=== PATIENT | female | born 1960 | race Caucasian/White ===

== ENCOUNTER 2021-11-27 07:50 | Outpatient (RCR) | payer OTHER, SELFPAY ==
[2021-11-06 13:48] LABS: Basophils Percent Auto 0.4 % (0.0-3.0); Eosinophils Percent Auto 0.4 % (0.0-7.0); Hematocrit 34.9 % (33.0-51.0); Hemoglobin* 11.8 gm/dL (12.0-16.0); Mean Corpuscular HGB Conc 34 gm/dL (32-36); Mean Corpuscular Hemoglobin 31 pg (26-34); Mean Corpuscular Volume 92 fL (80-100); Monocytes Percent Auto 10.5 % (0.0-11.0); Neutrophils Percent Auto 62.7 % (42.0-72.0); Platelet Count* 121 K/uL (140-440); Red Blood Count 3.78 m/uL (4.00-5.20)
[2021-11-06 14:02] LABS: Slide Review Reflex No
[2021-11-06 14:40] LABS: White Blood Count* 5.03 K/uL (4.50-11.00)
[2021-11-06 14:57] LABS: Lymphocytes Absolute Auto 1.31 K/uL (0.90-2.90); Neutrophils Absolute Auto 3.15 K/uL (1.7-7.0)
[2021-11-06 14:58] LABS: Basophils Absolute Auto 0.02 K/uL (0.00-0.30); Eosinophils Absolute Auto 0.02 K/uL (0.00-0.50)
[2021-11-06 15:11] LABS: Vitamin B12* > 1000 pg/mL (243-894)
== END 2022-05-05 23:59 | disposition home or self-care (01) ==
LOC: CCIC 07:50
PROVIDERS: Clinical Nurse Specialist; PCP Physician Assistant Medical; Visit Provider Nurse Practitioner Family
DX: D89.2 Hypergammaglobulinemia, unspecified (principal)
CPT/HCPCS: 36415; 82607; 85025

== ENCOUNTER 2022-01-29 09:17 | Outpatient (CLI) | payer OTHER, SELFPAY ==
[2022-01-29 14:25] LABS: Albumin* 4.4 g/dL (3.3-5.0); Chloride* 103 mmol/L (96-114)
[2022-01-29 14:26] LABS: Potassium* 4.8 mmol/L (3.6-5.1); Sodium* 139 mmol/L (135-149)
[2022-01-29 14:28] LABS: Aspartate Amino Transferase* 35 U/L (12-35); Blood Urea Nitrogen* 17 mg/dL (7-30); Carbon Dioxide* 30 mmol/L (20-32); Cholesterol* 195 mg/dL (90-199); Creatinine* 0.8 mg/dL (0.5-1.5); Estimated Glomerular Filt Rate 84 ml/min; Total Protein* 8.3 g/dL (6.0-8.3)
[2022-01-29 14:29] LABS: Alanine Aminotransferase* 23 U/L (4-35); Alkaline Phosphatase* 93 U/L (40-150); Calcium* 9.4 mg/dL (8.4-10.6); Glucose* 80 mg/dL (60-115); HDL Cholesterol* 56 mg/dL (>=50); LDL Cholesterol Calculated 125 mg/dL (<100); Triglycerides* 70 mg/dL (40-149)
== END 2022-01-29 09:18 | disposition home or self-care (01) ==
PROVIDERS: PCP Physician Assistant Medical; Visit Provider Physician Assistant Medical
DX: Z00.00 Encounter for general adult medical examination without abnormal findings (principal); E03.9 Hypothyroidism, unspecified; Z13.6 Encounter for screening for cardiovascular disorders
CPT/HCPCS: 80053; 80061; 84443

== ENCOUNTER 2022-04-24 15:05 | Outpatient (CLI) | payer OTHER, SELFPAY ==
--- NOTE | 2022-04-24 15:20 | CRLHL7_ITS ---
For Patients: As a result of the Century Cures Act, medical imaging exams and procedure reports are released immediately into your electronic medical record. You may view this report before your referring provider. If you have questions, please contact your health care provider. BILATERAL SCREENING MAMMOGRAM WITH COMPUTER-AIDED DETECTION AND TOMOSYNTHESIS TECHNIQUE: CC and MLO views were obtained. These mammographic images have been obtained using full-field digital technique. These mammographic images were interpreted with the benefit of computer-aided detection. Breast Tomosynthesis was used in this interpretation. COMPARISON FILM: 04/24/21, 04/04/19, 08/03/17. FINDINGS: The breasts are heterogeneously dense, which may obscure small masses IMPRESSION: There is no radiographic evidence for malignancy. ASSESSMENT: BI-RADS Category 1: Negative RECOMMENDATION: Routine screening mammogram in 1 year. A lay language report of this examination will be provided to the patient. Rogerio Plata M.D. Diagnostic Radiologist [email or web address] SEVERINO/Dictated by: Rogerio Plata MD @ 04/27/2022 8:54:00 AM (Electronically Signed)
== END 2022-04-24 15:06 | disposition home or self-care (01) ==
LOC: MAMMO 15:07
PROVIDERS: PCP Physician Assistant Medical; Visit Provider Physician Assistant Medical
DX: Z12.31 Encounter for screening mammogram for malignant neoplasm of breast (principal); R92.2 Inconclusive mammogram
CPT/HCPCS: 77063; 77067

== ENCOUNTER 2023-01-06 11:08 | Outpatient (CLI) | payer OTHER, SELFPAY | END 2023-01-06 11:09 | disposition home or self-care (01) | PROVIDERS: PCP Physician Assistant Medical; Visit Provider Physician Assistant Medical | DX: Z00.00 Encounter for general adult medical examination without abnormal findings (principal); E03.9 Hypothyroidism, unspecified; E53.8 Deficiency of other specified B group vitamins; D64.9 Anemia, unspecified; Z13.1 Encounter for screening for diabetes mellitus; Z13.6 Encounter for screening for cardiovascular disorders; Z13.0 Encounter for screening for diseases of the blood and blood-forming organs and certain disorders involving the immune mechanism; Z11.59 Encounter for screening for other viral diseases | CPT/HCPCS: 80053; 80061; 82607; 83540; 83550; 84443; 86703; 86803 ==

== ENCOUNTER 2023-02-02 09:32 | Outpatient (CLI) | payer OTHER, SELFPAY | END 2023-02-02 09:33 | disposition home or self-care (01) | LOC: NFLDREF 02-04 14:53 | PROVIDERS: PCP Physician Assistant Medical; Referring Provider Physician Assistant Medical; Visit Provider Physician Assistant Medical | DX: D64.9 Anemia, unspecified (principal); R77.9 Abnormality of plasma protein, unspecified; D89.2 Hypergammaglobulinemia, unspecified; R74.01 Elevation of levels of liver transaminase levels | CPT/HCPCS: 80053; 82746; 83615; 84165 ==

== ENCOUNTER 2023-03-09 14:02 | Outpatient (RCR) | payer OTHER, SELFPAY | END 2023-09-05 23:59 | disposition home or self-care (01) | LOC: CCIC 14:02 | PROVIDERS: Clinical Nurse Specialist; PCP Physician Assistant Medical; Visit Provider Internal Medicine Hematology & Oncology | DX: D80.2 Selective deficiency of immunoglobulin A [IgA] (principal); D89.2 Hypergammaglobulinemia, unspecified | CPT/HCPCS: 36415; 86334 ==

== ENCOUNTER 2023-05-27 14:14 | Outpatient (CLI) | payer OTHER, SELFPAY ==
--- NOTE | 2023-05-27 14:40 | MM_ITS ---
Patient: HILDA CONTRERAS Facility:?[facility] Patient ID:?[id number] Site Patient ID:?[id number]. Site :?1960 Study:?XRay-Breast Bilateral 3D W/CAD-05/27/2023 4:01:06 PM Ordering Physician:Annabelle Final Report: BILATERAL SCREENING MAMMOGRAM WITH COMPUTER-AIDED DETECTION AND TOMOSYNTHESIS TECHNIQUE: CC and MLO views were obtained. These mammographic images have been obtained using full-field digital technique. These mammographic images were interpreted with the benefit of computer-aided detection. Breast Tomosynthesis was used in this interpretation. COMPARISON FILM: 04/24/22, 04/24/21, 04/04/19. FINDINGS: The breasts are heterogeneously dense, which may obscure small masses. IMPRESSION: There is no radiographic evidence for malignancy. ASSESSMENT: BI-RADS Category 1: Negative RECOMMENDATION: Routine screening mammogram in 1 year. A lay language report of this examination will be provided to the patient. Rogerio Plata M.D. Diagnostic Radiologist [email or web address] DSM/sp R& Transcribed: 5:41 p.m. SP/Dictated by: Rogerio Plata MD @ 05/28/2023 9:58:00 AM Signed by:Caleb Plata MD @05/28/2023 6:02:56 PM (Electronic Signature)
== END 2023-05-27 14:15 | disposition home or self-care (01) ==
PROVIDERS: PCP Physician Assistant Medical; Visit Provider Physician Assistant Medical
DX: Z12.31 Encounter for screening mammogram for malignant neoplasm of breast (principal); R92.2 Inconclusive mammogram
CPT/HCPCS: 77063; 77067

== ENCOUNTER 2024-01-25 08:02 | Outpatient (CLI) | payer OTHER, SELFPAY ==
--- OUTSIDE RECORDS SUMMARY | 2024-01-29 17:30 | XMS_ITS | Clinical Summary ---
Author Organization [facility] Address [place], [place] [address] Care Team Providers Care Ear Mold Laboratory Technician Name Role Phone Fiona Jaquez MD Unavailable [phone] Rebeka Braden PA-C Primary Care Provider [phone] Allergies Active Allergy Reactions Criticality Noted Date Comments Azithromycin Anaphylaxis High 03/27/2008 Zythromax 02-03-2008 17:07:03 - verified Zythromax Levofloxacin Palpitations 05/06/2015 All groups of fluroquinolones Sulfa (Sulfonamide Antibiotics) Hives 03/07/2010 Sulfadiazine Hives 03/27/2008 02-03-2008 17:06:53 - verified Sulfasalazine Hives 04/30/2017 Medications Medication Sig Dispensed Refills Start Date End Date Status levothyroxine (SYNTHROID) 50 mcg tablet Take 1 tablet by mouth before breakfast. 0 11/18/2017 Active cholecalciferol (VITAMIN D3) 1,000 unit tablet Take by mouth. 01/18/2009 Act tri omeprazole 20 mg TbLD Take by mouth. 0 07/14/2022 Active acyclovir (ZOVIRAX) 200 mg capsule Take 1 Capsule (200 mg) by mouth 5 times daily. 50 Capsule 07/14/2022 Active medication order composer Probitoic Duo (Jarrow) 2 gummies daily 0 07/14/2022 Active medication order composer Vitamin B12 (Natrol) 2500 mcg 2 times weekly 0 07/14/2022 Active medication order composer Aloe Vera Juice 1oz/daily 0 07/14/2022 Active medication order composer Smarty Pants Womens Multi Vitamin PRN 0 07/14/2022 Active medication order composer Zince with/ Elderberry 5mg PRN 0 07/14/2022 Active metoprolol succinate (TOPROL XL) 50 mg sustained-release tablet 06/03/2022 Active medication order composer Iron 0 07/28/2022 Active medication order composer Glutathione 0 08/21/2022 Active medication order composer D3 w/K2 0 08/21/2022 Active medication order composer Binder Blend 0 10/09/2022 Active medication order composer NAC 0 10/09/2022 Active medication order composer Saccharomyces Boulardii 0 10/09/2022 Active medication order composer Pectasol C 0 10/09/2022 Active medication order composer X Clear Nasal Hydetown 0 10/09/2022 Activ e Active Problems Problem Noted Date Diagnosed Date 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 Normal ventricular function. No syncope. Paroxysmal Ventricular Tachycardia: Non sustained. Normal ventricular function. No syncope. 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 Polyarthralgia 03/27/2008 Encounters Date Type Department Care Team Description 01/28/2024 Lab Requisition [facility] [phone] Rebeka Braden PA-C 01/11/2024 8:25 AM CDT - 01/11/2024 11:59 PM CDT Hospital Encounter [address] [address] Eleanor Contreras MD Anderson, Alison Contreras, PT 01/11/2024 Travel 01/04/2024 9:15 AM CDT - 01/04/2024 11:59 PM CDT Hospital Encounter [address] [address] Eleanor Contreras MD Anderson, Alison Contreras, PT 01/04/2024 Travel 12/28/2023 7:45 AM CDT - 12/28/2023 11:59 PM CDT Hospital Encounter [address] [address] Eleanor Contreras MD Anderson, Alison Contreras, PT 12/28/2023 Travel 12/14/2023 7:45 AM CDT - 12/14/2023 11:59 PM CDT Hospital Encounter [address] [address] Elaenor Contreras MD Anderson, Kaitlyn A, PT 12/14/2023 Travel 11/30/2023 7:45 AM CDT - 11/30/2023 11:59 PM CDT Hospital Encounter [address] [address] Eleanor Contreras MD Anderson, Kaitlyn A, PT 11/30/2023 Travel 11/25/2023 7:45 AM CDT - 11/25/2023 11:59 PM CDT Hospital Encounter [address] [address] Eleanor Contreras MD Anderson, Kaitlyn A, PT 11/25/2023 Travel 11/08/2023 9:16 AM CDT - 11/08/2023 11:59 PM CDT Hospital Encounter [facility] [address] [place] [address] Eleanor Contreras MD Anderson, Kaitlyn A, PT Encounter for person encountering health services 11/08/2023 Travel from Last 3 Months Immunizations Name Administration Dates Next Due Hepatitis B, Unspecified 08/09/1998,03/11/1998,1 04/13/1997 Influenza A (H1N1), Inactivated 02/14/2011,03/01 Influenza Virus, Unspecified 01/31/2011 Influenza, IIV3 (Age >=3 years) 01/06/2014 Influenza, IIV4 01/06/2023,,12/28/2020,12/17 Influenza, IIV4 (=>6mos) MDV 12/12/2016 Pneumococcal Poly,23-Valent (Pneumovax) 02/06/2011 Pneumococcal conj 13-Valent (Prevnar 13) 12/13/2005 RSV, Bivalent Vaccine Recons tituted (Abrysvo 120MCG/0.5mL) 01/06/2023 Tdap 02/09/2011 Tetanus Toxoid 10/13/2006 Zoster (Shingrix-RZV, recombinant) 04/01/2020, Family History Medical History Relation Name Comments Diabetes Brother 1 Diabetes Brother 2 Irritable bowel syndrome Brother 3 Thyroid Disease Brother [address] Brain tumor Cancer Brother 5 kidney transpla nt - antirejection Other Brother 6 ankelosis spont ilitis Hyperlipidemia Father Hypertension Father Irritable bowel syndrome Father Other Father celic/pernish e nemia Thyroid Disease Father Alcoholism Maternal Grandmother Psychiatric illness Maternal Grandmother Schizophrenia Other Mother dementia Diabetes Other 1 neice Other Other 2 Multiple family member has GI issures Heart Disease Paternal Grandmother Heart Disease Paternal Uncle Hypertension Sister Irritable bowel syndrome Sister Relation Name Status Comments Brother 1 Brother 2 Brother [address] Brother 5 Brother 6 Father Maternal Grandmother Mother Other 1 Other 2 Paternal Grandmother Paternal Uncle Sister Social History Tobacco Use Types Packs/Day Years Used Date Smoking Tobacco: Never Passive Smoke Exposure: Past Smokeless Tobacco: Never Tobacco Cessation:Counseling Given: Not Answered Comments:quit since high school Alcohol Use Standard Drinks/Week Comments Yes 2 (1 standard drink = 0.6 oz pur e alcohol) wine - Wednesday or Wednesday PHQ-2 Answer Date Recorded PHQ-2 TOTAL SCORE 0 07/14/2022 Social Connections Answer Date Recorded Frequency of Communication with Friends and Fami ly Not on file 07/16/2023 Alcohol Use Answer Date Recorded How often do you have a drink containing alcohol ? 3 10/09/2022 How many drinks containing a lcohol do you have on a typical day when you are drinking? 0 10/09/2022 How often do you have five or more drinks on one occasion? 0 10/09/2022 Financial Resource Strain Answer Date R ecorded Difficulty of Paying Living Expenses 3 07/14/2022 Difficulty of Paying Living Expenses Not on file 07/14/2022 Food Insecurity Answer Date Recorded Worried About Running Out of Food in the Last Ye ar 1 07/14/2022 Transportation Needs Answer Date Record ed Lack of Transportation (Medical) 1 07/14/2022 Housing Stability Answer Date Recorded Unable to Pay for Housing in the Last Year 1 07/14/2022 Sex and Gender Information Value Date Recorded Sex Assigned at Not on file Gender Identity Not on file Sexual Orientation Not on file Obstetrics History Para Term AB IAB SAB Ectopic Multiple Livin g Live Births 2 2 2 0 0 0 0 0 0 2 2 Date Outcome GA Total Labor Labor/2nd/3rd Weight Sex Type Anes PTL Hui A1 A5 Name Clin 1981 Term 40w 0d F Vag Living 1983 Term 40w 0d F Vag Living Last Filed Vital Signs Vital Sign Reading Time Taken Comments Blood Pressure 104/68 06/07/2023 3:02 PM CDT Pulse 68 06/07/2023 3:02 PM CDT Temperature 37 ??C (98.6 ??F) 11/24/2022 1:05 PM CDT Respiratory Rate 18 11/24/2022 1:05 PM CDT Oxygen Saturation 100% 06/07/2023 3:02 PM CDT Inhaled Oxygen Concentration - - Weight 59 kg (130 lb) 06/07/2023 3:02 PM CDT Height 166.4 cm (5' 5.5) 07/28/2022 2:56 PM CDT Body Mass Index 21.3 07/28/2022 2:56 PM CDT Plan of Treatment Health Maintenance Due Date Last Done Comments HIV for age 15-65 12/26/1975 Hepatitis C screening for ag e 18-79 1978 Colonoscopy through age 75 2005 Lipids for age 45-75 2005 Mammogram for age 45-75 2005 Pneumococcal series for age 6-64 (3 of 3 - PPSV23 or PCV20) 02/07/2016 02/06/2011, 12/13/2005 BMI (ht and wt on same day) for age 18+ 02/03/2020 02/02/2019 Tetanus booster 02/09/2021 02/09/2011 Depression screening for age 12+ 07/15/2023 07/15/19, 02/02/2019 Influenza for age 50-64 11/14/2023 01/07/20, 01/04/2022, 12/28/2020, Additional history exists COVID-19 vaccine series (2023- season) 2024 01/01/2024, 02/23/2023, 01/08/2022, Additional history exists Pap test for age 21-65 01/29/2025 , 01/29/2022, 07/26/2017, Additional history exists Tdap Completed 02/09/2011 Zoster (shingles) series for age 50+ Completed 04/01/2020, 01/15/2020 Procedures Procedure Name Priority Date/Time Associated Diagnosis Comments RETICULOCYTES Routine 01/27/2024 12:50 PM THINNER SPRAYER HPV HIGH RISK Routine 01/29/2022 9:15 AM THINNER SPRAYER from Last 3 Months or Most Recently Relevant to Health Maintenance Results * RETICULOCYTES (01/27/2024 12:50 PM THINNER SPRAYER) RETIC% 1.3 0.5 - 1.5 % 01/28/2024 1:53 PM THINNER SPRAYER [facility] [employer] [facility] [facility] RETIC (ABSOLUTE) 0.05 0.03 - 0.08 mil/cu mm 01/28/2024 1:53 PM THINNER SPRAYER [facility] [employer] [facility] Blood BLOOD SPECIMEN / Unknown Client Collect / Unknown 01/27/2024 12:50 PM THINNER SPRAYER 01/28/2024 1:35 PM THINNER SPRAYER Rebeka Braden PA-C HEMATOLOGY [facility] [address] [place] [address], * HPV HIGH RISK (01/29/2022 9:15 AM THINNER SPRAYER) TYPE 16 Negative Negative 02/06/2022 11:17 AM THINNER SPRAYER [facility] TYPE 18 Negative Negative 02/06/2022 11:17 AM THINNER SPRAYER [facility] OTHER HIGH RISK TYPES Negative Negative 02/06/2022 11:17 AM THINNER SPRAYER [facility] Other (Cervical) 01/29/2022 9:15 AM THINNER SPRAYER 01/30/2022 10:01 AM THINNER SPRAYER Narrative [facility] - 02/06/2022 11:17 AM THINNER SPRAYER HPV types 16, 18, 31, 33, 35, 39, 45, 51, 52, 56, 58, 59, 66 and 68 DNA were undetectable or below the pre-set threshold. Methodology: Tonia Lizzie 4800 HPV Test Lamonte Norwood PA-C MICROBIOLOGY Performing Organization Address City/[facility]/ZIP Co de Phone Number [facility] [address] [place] [address], from Last 3 Months or Most Recently Relevant to Health Maintenance Care Teams Ear Mold Laboratory Technician Relationship Specialty Start Date End Date Rebeka Braden PA-C [address] [place] [address] PCP - General Emergency Medicine 01/19/23 Fiona Jaquez MD Family Practice 10/11/17
--- OUTSIDE RECORDS SUMMARY | 2024-01-29 17:30 | XMS_ITS | Clinical Summary ---
Author Organization [facility] Address [address] [place] [address] Care Team Providers Care Major Account Representative Name Role Phone Leonila Romo PA-C Primary Care Provider [phone] Source Comments You are receiving this document as you are listed as the primary care provider,follow-up provider, or the patient has been referred to you for consultation.This is in compliance with the Medicare and[facility] EHR Incentive Program,which states Providers who transition their patient to another setting of careor provider of care or refers their patient to another provider of care shouldprovide summary care record for each transition of care or referral. [employer] Allergies Active Allergy Reactions Criticality Noted Date Comments Azithromycin 04/30/2017 Levofloxacin 04/30/2017 Sulfa Antibiotics 04/30/2017 Medications Medication Sig Dispensed Refills Start Date End Date Status levothyroxine (SYNTHROID) 75 MCG tablet Take 50 mcg by mouth daily. Active acyclovir (ZOVIRAX) 200 MG capsule Take by mouth every 4 hours while awake. Active Ascorbic Acid (VITAMIN C OR) Active NASAL SALINE NA Active metoprolol succinate (TOPROL XL) 50 MG 24 hour release tablet Take 1 Tablet (50 mg) by mouth daily. 06/07/2013 Active cholecalciferol (VITAMIN D3) 25 MCG (1000 UT) tablet Take 1 Tablet (1,000 Units) by mouth daily. 01/18/2009 Active IRON, FERROUS SULFATE, OR Active MAG THREONATE-NIACINAMIDE ER OR Active Probiotic Product (SUPER PROBIOTIC OR) Acti ve cyanocobalamin 2000 MCG tablet Take 1 Tablet (2,000 mcg) by mouth daily. 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 Normal ventricular function. No syncope. Supraventricular tachycardia 03/03/2010 Overview (05/03/2017): Overview: Reentrant SVT treated with Atenolol Polyarthralgia 03/27/2008 Vitamin D deficiency, unspecified Social History Tobacco Use Types Packs/Day Years Used Date Smoking Tobacco: Never Smokeless Tobacco: Never Sex and Gender Information Value Date Recorded Sex Assigned at Not on file Gender Identity Not on file Sexual Orientation Not on file Last Filed Vital Signs Vital Sign Reading Time Taken Comments Blood Pressure 126/68 09/08/2023 9:02 AM CDT Pulse 52 09/08/2023 9:02 AM CDT Temperature 35.6 ??C (96 ??F) 07/17/2021 1:01 PM CDT Respiratory Rate - - Oxygen Saturation 100% 01/13/2018 1:09 PM CDT Inhaled Oxygen Concentration - - Weight 58.5 kg (129 lb) 09/08/2023 9:02 AM CDT Height 167.6 cm (5' 6) 01/13/2018 1:09 PM CDT Body Mass Index 20.82 01/13/2018 1:09 PM CDT Plan of Treatment Health Maintenance Due Date Last Done Comments Cervical Cancer Screening Due 1960 Colon Cancer Screening Plan Due 1960 Hep C Screening (Preventive Services) 1960 Mammogram 1960 HIV Screening (Preventive Services) 1976 Adult Preventive Visit 1978 Cholesterol 2005 RSV (1 - Risk 60-74 years 1-dose series) 2020 DTaP/Tdap/Td (2 - Tdap) 02/09/2021 02/09/2011 COVID-19 Vaccine ( season) 2023 02/23/2023, 01/08/2022, 01/27/2021, Additional history exists Influenza (#1) 2023 01/06/2023, 12/14, 12/28/2020, Additional history exists Dexa 01/16/2027 01/16/2022 Pneumococcal Aged Out 02/06/2011, 12/13/2005 No lo nger eligible based on patient's age to complete this topic Zoster/Shingles Completed 04/01/2020, 01/15/2020 HepA Aged Out No longer eligi ble based on patient's age to complete this topic HepB Aged Out No longer eligi ble based on patient's age to complete this topic Hib Aged Out No longer eligi ble based on patient's age to complete this topic IPV (Polio) Aged Out No longer eligi ble based on patient's age to complete this topic RSV Aged Out No longer eligi ble based on patient's age to complete this topic MCV4 Aged Out No longer eligi ble based on patient's age to complete this topic Procedures Procedure Name Priority Date/Time Associated Diagnosis Comments DXA BONE DENSITY SPINE/HIP Routine 01/16/2022 10:11 AM CDT Post-menopausal from Last 3 Months or Most Recently Relevant to Health Maintenance Results * DXA Bone Density Spine/Hip (01/16/2022 10:11 AM CDT) Anatomical Region Laterality Modality Lower Extremity, Spine, Hip, L-Spine Radiographic Imaging Narrative 01/21/2022 11:59 AM [facility] DXA REPORT Patient Name: ??Ely Duvall Densitometer:[employer] W (S/N [id number]) FLOWER BONE OSTEOPOROSIS RISK FACTORS FROM PATIENT QUESTIONNAIRE: ?? The patient is a 61 y.o.female: Calcium intake is not adequate. There is no self-reported history of hip, spine, pelvis, humerus, or wrist fracture; no family history of spine fracture; and no family history of hip fracture. ?? BONE MINERAL DENSITY: Lumbar Spine Vertebrae Included: L1;L2;L3;L4 Bone Mineral Density (gm/cm2): 0.939 T-Score: -1 Z-Score: 0.5 Total Hip Bone Mineral Density (gm/cm2): 0.742 (L) T-Score: -1.6 Z-Score: -0.6 Femoral Neck Bone Mineral Density (gm/cm2): 0.677 T-Score: -1.6 Z-Score: -0.2 FRAX 10 year probability major osteoporotic fracture: 8.9% 10 year probability hip fracture: 0.9% COMPARISON TO PRIOR STUDY: This is a baseline bone density test (first one at [facility]) ASSESSMENT: 1. Low bone mass, based on T-score(s) at femoral neck and total hip 2. Patient is at low risk of fracture, based on age, fracture history, bone mineral density at all skeletal sites, and presence or absence of other risk factors. RECOMMENDATIONS: ?? 1. Optimize calcium and vitamin D intake 2. Repeat DXA in 5 years TBS for this patient is 1.241 FRAX fracture risk estimates are adjusted for Trabecular Bone Score (TBS) Trabecular Bone Score (TBS) is a measure of the microarchitectural integrity of trabecular bone, and is derived from the [id number] changes of bone density embedded in the AP spine BMD image. TBS is only modestly correlated with BMD, and is modestly associated with incident major osteoporotic and hip fractures independent of BMD and other risk factors. TBS values of >1.350 indicate intact trabecular microarchitecture TBS values of 1.200 to 1.350 indicate partially degraded trabecular microarchitecture TBS values of <1.200 indicate degraded trabecular microarchitecture FRAX Explanation: The 10 year risks of hip and major osteoporotic fractures (clinical spine, forearm, hip or shoulder fracture) are calculated by the FRAX algorithm based on femoral neck bone density, age, gender, race/ethnicity, weight, height, previous fracture, parental hip fracture, smoking status, glucocorticoid intake, history of RA, secondary osteoporosis, and high alcohol consumption. FRAX Fracture Risk Categories in terms of major osteoporotic fractures: < 10% = low fracture risk ? 10% and <15% = mildly increased fracture risk ? 15% and <20% = moderately increased fracture risk ? 20% and <30% = high fracture risk ? 30% = very high fracture risk National Osteoporosis Foundation Treatment Guideline A clinician may consider FDA-approved medical therapies in postmenopausal women and men aged 50 years and older, if one or more of the following is present (clinical correlation required and therapy may not always be indicated): 1. The patient has a hip or vertebral fracture. 2. T-score ? -2.5 at the femoral neck, hip, or spine after appropriate evaluation to exclude secondary causes. 3. Low bone mass (T-score between -1.0 and -2.5 at the femoral neck, hip or spine) and a 10-year probability of a hip fracture ? 3% or a 10-year probability of a major osteoporosis-related fracture ? 20% based on the FRAX scores. Nyla Messer MD RAD DEXA from Last 3 Months or Most Recently Relevant to Health Maintenance Care Teams Major Account Representative Relationship Specialty Start Date End Date Leonila Romo PA-C [address] [place] [address] PCP - General Physician Supervisor Print Line 06/08/13
--- OUTSIDE RECORDS SUMMARY | 2024-01-29 17:30 | XMS_ITS | Encounter Summary ---
[facility] Address [address] [place] [address] Care Team Providers Care Inspector Rough Castings Name Role Phone Leonila Romo PA-C Primary Care Provider [phone] Encounter Details Date Type Department Care Team (Late st Contact Info) Description 10/06/2016 Scanned History External to Transferred Record, Provider [facility] Social History Tobacco Use Types Packs/Day Years Used Date Smoking Tobacco: Never Assessed Sex and Gender Information Value Date Recorded Sex Assigned at Not on file Gender Identity Not on file Sexual Orientation Not on file documented as of this encounter Plan of Treatment Not on file documented as of this encounter Visit Diagnoses Not on filedocumented in this encounter Care Teams Inspector Rough Castings Relationship Specialty Start Date End Date Leonila Romo PA-C [address] [place] [address] PCP - General Physician Count Team Member 06/08/13 documented as of this encounter
== END 2024-01-25 08:03 | disposition home or self-care (01) ==
LOC: NFLDREF 01-29 17:28
PROVIDERS: PCP Physician Assistant Medical; Referring Provider Physician Assistant Medical; Visit Provider Physician Assistant Medical
DX: Z00.00 Encounter for general adult medical examination without abnormal findings (principal); R70.0 Elevated erythrocyte sedimentation rate; E03.9 Hypothyroidism, unspecified; E53.8 Deficiency of other specified B group vitamins; D69.6 Thrombocytopenia, unspecified; R77.9 Abnormality of plasma protein, unspecified; Z13.6 Encounter for screening for cardiovascular disorders; Z13.0 Encounter for screening for diseases of the blood and blood-forming organs and certain disorders involving the immune mechanism; Z13.1 Encounter for screening for diabetes mellitus
CPT/HCPCS: 80053; 80061; 84439; 84443

== ENCOUNTER 2024-01-27 11:58 | Outpatient (CLI) | payer OTHER, SELFPAY | END 2024-01-27 11:59 | disposition home or self-care (01) | PROVIDERS: PCP Physician Assistant Medical; Visit Provider Physician Assistant Medical | DX: Z00.00 Encounter for general adult medical examination without abnormal findings (principal); D69.6 Thrombocytopenia, unspecified; R70.0 Elevated erythrocyte sedimentation rate; R77.9 Abnormality of plasma protein, unspecified; K76.9 Liver disease, unspecified; K21.00 Gastro-esophageal reflux disease with esophagitis, without bleeding; D89.2 Hypergammaglobulinemia, unspecified; E03.9 Hypothyroidism, unspecified; D80.2 Selective deficiency of immunoglobulin A [IgA]; M35.00 Sjogren syndrome, unspecified; I47.20 Ventricular tachycardia, unspecified; Z13.6 Encounter for screening for cardiovascular disorders; Z13.0 Encounter for screening for diseases of the blood and blood-forming organs and certain disorders involving the immune mechanism; Z13.1 Encounter for screening for diabetes mellitus | CPT/HCPCS: 82607; 82746; 82784; 83520; 83540; 83550; 84155; 84165; 86231; 86258; 86334; 86364 ==

== ENCOUNTER 2024-08-14 08:24 | Outpatient (CLI) | payer OTHER, SELFPAY ==
--- NOTE | 2024-08-14 08:45 | CRLHL7_ITS ---
For Patients: As a result of the Century Cures Act, medical imaging exams and procedure reports are released immediately into your electronic medical record. You may view this report before your referring provider. If you have questions, please contact your health care provider. INDICATION: BILATERAL SCREENING MAMMOGRAM, ASYMPTOMATIC 63 Y/O FEMALE COMPARISON: 05/27/2023, 04/24/2022, 04/24/2021 TECHNIQUE: Digital mammogram in CC and MLO projections including computer-aided detection (CAD) and tomosynthesis. BREAST COMPOSITION: The breasts are heterogeneously dense, which may obscure small masses. FINDINGS: No suspicious findings. ASSESSMENT: BI-RADS 2 Benign RECOMMENDATION: Annual screening mammogram. A lay language report of this examination will be provided to the patient. Dictated by: Rogerio Plata MD @ 08/21/2024 13:24:49 (Electronically Signed)
== END 2024-08-14 08:25 | disposition home or self-care (01) ==
LOC: MAMMO 08:25
PROVIDERS: PCP Physician Assistant Medical; Visit Provider Physician Assistant Medical
DX: Z12.31 Encounter for screening mammogram for malignant neoplasm of breast (principal); R92.333 Mammographic heterogeneous density, bilateral breasts
CPT/HCPCS: 77063; 77067

== ENCOUNTER 2024-10-18 15:25 | Outpatient (CLI) | payer OTHER, SELFPAY | END 2024-10-18 15:26 | disposition home or self-care (01) | LOC: NFLDREF 10-23 14:59 | PROVIDERS: PCP Physician Assistant Medical; Referring Provider Physician Assistant Medical; Visit Provider Physician Assistant Medical | DX: R30.9 Painful micturition, unspecified (principal); N39.0 Urinary tract infection, site not specified; R39.15 Urgency of urination; D80.2 Selective deficiency of immunoglobulin A [IgA]; D69.6 Thrombocytopenia, unspecified | CPT/HCPCS: 87086 ==